=== PATIENT | female | born 1950 | race Caucasian/White ===

== ENCOUNTER → 2016-08-23 | Outpatient (CLI) | payer OTHER ==
--- NOTE | 2016-08-23 12:25 | KCIC ---
PROCEDURE MR of the right shoulder HISTORY Right shoulder pain. Pain at the proximal lateral humerus and shoulder fracture when 9 years old. COMPARISON None TECHNIQUE Standard multiplanar sequences are obtained. FINDINGS There is mild motion degradation. Acromioclavicular joint is mildly degenerative. Diffuse tendinosis signal involving the rotator cuff. Full-thickness tear of the anterior supraspinatus tendon measures about 1 centimeter AP diameter with 1-2 centimeters retraction. There is a small linear full-thickness non retracted tear of the more posterior supraspinatus tendon measures 5 millimeters AP diameter by about 1 millimeter wide Mild fluid accumulation in the subdeltoid bursa. Subscapularis tendinosis with mild partial tearing. There is mild rotator cuff muscle atrophy with volume loss and fatty infiltration. Small glenohumeral joint effusion Limited labrum exam due to the motion degradation. Signal within the superior labrum could be a degenerative tear. Biceps tendon demonstrates tendinosis but no rupture or displacement. No bone lesion or acute fracture. No acute muscle tear. There is some mild edema signal along the posterior supraspinatus and infraspinatus muscles IMPRESSION 1. Small full-thickness retracted tear of the anterior supraspinatus tendon. There is a smaller linear full-thickness tear at the posterior aspect of the supraspinatus tendon. Mild partial subscapularis tendon tear. 2. Limited labrum exam due to motion, possible superior labral tear. Electronically signed by: Cristofer Waggoner MD (Aug 23, 2016 12:24:31)
== END | disposition home or self-care (01) ==
LOC: KCIC MRI 09:55
PROVIDERS: ATTEND Nurse Practitioner
DX: M25.511 Pain in right shoulder (principal)
CPT/HCPCS: 73221